=== PATIENT | male | born 1960 | race African-American/Black ===

== ENCOUNTER 2016-11-15 02:30 | Inpatient (IN) | payer MEDICAID ==
[~2016-11-15] VITALS: Ht 188 cm; Wt 68.0 kg
[2016-11-15] VITALS (9 sets, daily range): BP systolic 126–137; BP diastolic 58–76
[~2016-11-15 02:30] MED LIST: Albuterol ud Inhalation HHN ONE; Ipratropium 0.02% Inh Soln 2.5ml UD HHN ONE; NKM
[2016-11-15 03:11] LABS: ABG ALLEN TEST POSITIVE; ABG BASE EXCESS -4.9; ABG PCO2 44.6 mmHg (35.0-45.0)
[2016-11-15 04:02] LABS: MEAN CORPUSCULAR HGB CONC 32.8 G/DL (32.0-36.0); MEAN CORPUSCULAR VOLUME 88 FL (80-99); MEAN PLATELET VOLUME 6.9 FL (6.5-10.1); PLATELET COUNT 94 K/UL (150-450); RED BLOOD COUNT 3.86 M/UL (4.70-6.10); RED CELL DISTRIBUTION WIDTH 15.7 % (11.6-14.8); WHITE BLOOD COUNT 4.3 K/UL (4.8-10.8)
[2016-11-15 04:17] LABS: ALANINE AMINOTRANSFERASE 16 U/L (3-41); ALBUMIN/GLOBULIN RATIO 1.1 (1.0-2.7); ANION GAP 18 (5-15); ASPARTATE AMINO TRANSFERASE 25 U/L (5-40); CALCIUM 8.9 mg/dL (8.6-10.2); CARBON DIOXIDE 20 mEQ/L (20-30); CHLORIDE 100 mEQ/L (98-107); CREATININE 0.8 mg/dL (0.7-1.2); GLOMERULAR FILTRATION RATE > 60 mL/min (>60); HEMOLYSIS 58; POTASSIUM 4.4 mEQ/L (3.4-4.9); SODIUM 138 mEQ/L (135-145); TOTAL PROTEIN 7.1 g/dL (6.6-8.7)
[2016-11-15 04:36] LABS: REFLEX LACTIC ACID YES OR NO YES
[2016-11-15 04:58] LABS: TROPONIN I < 0.30 ng/mL (<=0.30)
[2016-11-15 05:11] LABS: CKMB < 1.5 ng/mL (< 6.7)
--- NOTE | 2016-11-15 06:13 | Emergency Room Report ---
History of Present Illness General Chief Complaint: Dyspnea/Respdistress Source: Patient Present Illness HPI 56-year-old male presents to ED complaining of shortness of breath. States shortness of breath started x1 day. Notes cough. Cough is dry. Denies chest pain. Denies fevers or chills. Patient states he is on home oxygen. Has a tracheostomy because of throat cancer. States he was admitted at another hospital for several months because of his throat cancer and was discharged last week. No other aggravating or relieving factors. Denies any other associated symptoms Allergies: Coded Allergies: No Known Allergies (Unverified , 10/11/12) Patient History Past Medical History: other - throat cancer Past Surgical History: other - trach Pertinent Family History: none Social History: Denies: alcohol use, drug use, smoking Immunizations: UTD Reviewed Nursing Documentation: PMH: Agreed, PSxH: Agreed Nursing Documentation-PMH Hx Cancer: Yes - THROAT CA,WITH TRACHE Hx Gastrointestinal Problems: Yes - pancreatitis,etoh abuse Review of Systems All Other Systems: negative except mentioned in HPI Physical Exam Vital Signs Date Time Temp Pulse Resp B/P Pulse Ox O2 Delivery O2 Flow Rate FiO2 11/15/16 02:07 97.9 84 16 144/73 100 Room Air Sp02 EP Interpretation: reviewed, normal General Appearance: no apparent distress, alert, GCS 15, non-toxic, cachetic, thin Head: normocephalic ENT: hearing grossly normal, normal pharynx, no angioedema, normal voice Neck: full range of motion, supple/symm/no masses, tracheotomy Respiratory: decreased breath sounds Cardiovascular #1: regular rate, rhythm, no edema Gastrointestinal: normal bowel sounds, non tender, soft, non-distended, no guarding, no rebound Rectal: deferred Genitourinary: no CVA tenderness Musculoskeletal: normal inspection Neurologic: alert, oriented x3, responsive, motor strength/tone normal, sensory intact, speech normal Psychiatric: normal inspection Skin: normal inspection Lymphatic: normal inspection Medical Decision Making Diagnostic Impression: Primary Impression: Respiratory distress Additional Impression: Shortness of breath ER Course Hospital Course 56-year-old M presenting to ED with SOB. h/o throat cancer Differential diagnoses include: Pneumonia, CHF exacerbation, pneumothorax, fluid overload Clinical course Patient placed on stretcher. On nurse charge rn with stable vitals. After initial history and physical, I ordered nebulizer treatments. I ordered labs, IV fluids, EKG, chest x-ray, blood cultures, UA. Labs - no leukocytosis noted, hemoglobin/hematocrit stable, electrolytes okay, lactate okay, troponins negative, CXR - hyperinflated lungs. no infiltrates. trach noted EKG - NSR, no acute changes abx given. IvFs given Case discussed with Dr. Gar and he agreed to the patient to his service for further care and support I feel this is a highly complex case requiring extensive working including EKG/ Rhythm strip, Xray/CT/US, Blood/urine lab work, repeat exams while in ED, and administration of strong opiates/narcotics for pain control, admission to hospital or close patient follow up. Diagnosis - respiratory distress, SOB Patient admitted to telemetry in serious condition Labs Test 11/15/16 02:23 11/15/16 03:20 11/15/16 05:30 Arterial Blood pH 7.299 (7.350-7.450) Arterial Blood Partial Pressure CO2 44.6 mmHg (35.0-45.0) Arterial Blood Partial Pressure O2 102.5 mmHg (75.0-100.0) Arterial Blood HCO3 21.4 mmol/L (22.0-26.0) Arterial Blood Oxygen Saturation 96.3 % (92.0-98.0) Arterial Blood Base Excess -4.9 Joe Test Positive White Blood Count 4.3 K/UL (4.8-10.8) Red Blood Count 3.86 M/UL (4.70-6.10) Hemoglobin 11.2 G/DL (14.2-18.0) Hematocrit 34.1 % (42.0-52.0) Mean Corpuscular Volume 88 FL (80-99) Mean Corpuscular Hemoglobin 29.0 PG (27.0-31.0) Mean Corpuscular Hemoglobin Concent 32.8 G/DL (32.0-36.0) Red Cell Distribution Width 15.7 % (11.6-14.8) Platelet Count 94 K/UL (150-450) Mean Platelet Volume 6.9 FL (6.5-10.1) Neutrophils (%) (Auto) % (45.0-75.0) Lymphocytes (%) (Auto) % (20.0-45.0) Monocytes (%) (Auto) % (1.0-10.0) Eosinophils (%) (Auto) % (0.0-3.0) Basophils (%) (Auto) % (0.0-2.0) Sodium Level 138 mEQ/L (135-145) Potassium Level 4.4 mEQ/L (3.4-4.9) Chloride Level 100 mEQ/L (98-107) Carbon Dioxide Level 20 mEQ/L (20-30) Anion Gap 18 (5-15) Blood Urea Nitrogen 12 mg/dL (7-23) Creatinine 0.8 mg/dL (0.7-1.2) Estimat Glomerular Filtration Rate > 60 mL/min (>60) Glucose Level 98 mg/dL (74-106) Lactic Acid Level 2.10 mmol/L (0.66-2.22) Calcium Level 8.9 mg/dL (8.6-10.2) Total Bilirubin 0.4 mg/dL (0.0-1.2) Aspartate Amino Transf (AST/SGOT) 25 U/L (5-40) Alanine Aminotransferase (ALT/SGPT) 16 U/L (3-41) Alkaline Phosphatase 94 U/L (40-129) Total Creatine Kinase 32 U/L (38-174) Creatine Kinase MB < 1.5 ng/mL (< 6.7) Creatine Kinase MB Relative Index 4.6 Troponin I < 0.30 ng/mL (<=0.30) Total Protein 7.1 g/dL (6.6-8.7) Albumin 3.8 g/dL (3.5-5.2) Globulin 3.3 g/dL Albumin/Globulin Ratio 1.1 (1.0-2.7) EKG Diagnostic Results Rate: normal Rhythm: NSR ST Segments: no acute changes ASA given to the pt in ED: No Rhythm Strip Diag. Results EP Interpretation: yes Rhythm: NSR, no PVC's, no ectopy Chest X-Ray Diagnostic Results EP Interpretation: Yes Findings: no consolidation, no effusion, no pneumothorax, no acute cardiopulmonary disease, other - trach Number of Views: 1 Last Vital Signs Date Time Temp Pulse Resp B/P Pulse Ox O2 Delivery O2 Flow Rate FiO2 11/15/16 05:00 98.1 65 16 132/76 100 Room Air Status: improved Disposition: ADMITTED INPATIENT Condition: Serious Referrals: [facility],REFERRING (PCP) ELLIOT SANDERS M.D. November 15, 2016 06:13
[2016-11-15] MEDS ORDERED: DiphenhydrAMINE 50mg/ml Inj IVP PRN (11:00)
[2016-11-15] MEDS ORDERED: Promethazine/Codeine 5ml UD ORAL PRN ×2 (11:00→19:00)
[2016-11-15] MEDS ORDERED: LORazepam Inj 2mg/ml 1ml IV PRN ×2 (11:00→19:00)
[2016-11-15] MEDS ORDERED: Morphine Sulfate 2mg/ml Inj IVP PRN (11:00)
[2016-11-15] MEDS ORDERED: Ketorolac 30mg Inj IV PRN ×2 (11:00→19:00)
[2016-11-15] MEDS ORDERED: DuoNeb 0.5-3(2.5)mg/3ml neb HHN PRN ×2 (11:00→19:00)
[2016-11-15] MEDS ORDERED: Nitroglycerin Subl 0.4mg tab (Bottle Of 25) SL PRN ×2 (11:00→18:15)
[2016-11-15] MEDS: Solu-MEDROL 125mg Inj IV SCH ×3 (11:56→23:44)
--- NOTE | 2016-11-15 12:05 | Diagnostic Imaging Report ---
Indication: SOB Technique: One view of the chest Comparison: none Findings: There is a tracheostomy. Lungs and pleural spaces are clear. Heart size is normal. The bones are unremarkable Impression: No acute process
--- NOTE | 2016-11-15 13:18 | History and Physical ---
History of Present Illness General Date patient seen: November 15, 2016 Reason for Hospitalization: Dyspnea/Respdistress Present Illness HPI 56-year-old male with hx of throat cancer, s/p tracheostomy 6 month ago presented to ED complaining of shortness of breath, dry Cough. He is on home oxygen. He was discharged last week from [facility]. No other aggravating or relieving factors. Denies any other associated symptoms Allergies: Coded Allergies: No Known Allergies (Unverified , 10/11/12) Medication History Scheduled No Known Medications* (NKM - No Known Medications*), 0 ., (Reported) Patient History Healthcare decision maker self Resuscitation status Full Code Advanced Directive on File Past Medical/Surgical History Past Medical/Surgical History: (1) Throat cancer (2) Alcohol abuse Review of Systems All Other Systems: negative except mentioned in HPI Physical Exam General Appearance: cachetic Lines, tubes and drains: peripheral HEENT: normocephalic, atraumatic Neck: non-tender, normal alignment Respiratory/Chest: chest wall non-tender, lungs clear Cardiovascular/Chest: normal peripheral pulses, normal rate Abdomen: normal bowel sounds, non tender Genitourinary/Rectal: normal genital exam Extremities: normal range of motion Last 24 Hour Vital Signs Date Time Temp Pulse Resp B/P Pulse Ox O2 Delivery O2 Flow Rate FiO2 11/15/16 11:37 96.9 63 20 137/63 99 Room Air 11/15/16 11:10 75 18 Room Air 11/15/16 11:10 95 Room Air 21 11/15/16 09:15 97.3 75 17 133/66 100 Room Air 11/15/16 08:23 75 14 124/64 98 Room Air 11/15/16 07:05 70 16 Room Air 11/15/16 07:05 98.0 70 16 127/64 100 Room Air 11/15/16 06:30 98.2 74 15 126/58 100 Room Air 11/15/16 05:00 98.1 65 16 132/76 100 Room Air 11/15/16 04:10 75 18 100 Room Air 11/15/16 03:56 70 18 100 Room Air 11/15/16 03:55 70 18 Room Air 11/15/16 03:30 98.2 66 16 130/70 99 Room Air 11/15/16 02:35 84 16 Room Air 11/15/16 02:35 98.0 64 17 127/67 100 Room Air 11/15/16 02:07 97.9 84 16 144/73 100 Room Air Intake and Output 11/14/16 11/15/16 19:00 07:00 Intake Total 650 ml Output Total 0 ml Balance 650 ml Intake IV Total 650 ml Output Urine Total 0 ml Laboratory Tests Test 11/15/16 02:23 11/15/16 03:20 11/15/16 05:30 Arterial Blood pH 7.299 (7.350-7.450) Arterial Blood Partial Pressure CO2 44.6 mmHg (35.0-45.0) Arterial Blood Partial Pressure O2 102.5 mmHg (75.0-100.0) H Arterial Blood HCO3 21.4 mmol/L (22.0-26.0) L Arterial Blood Oxygen Saturation 96.3 % (92.0-98.0) Arterial Blood Base Excess -4.9 Joe Test Positive White Blood Count 4.3 K/UL (4.8-10.8) L Red Blood Count 3.86 M/UL (4.70-6.10) L Hemoglobin 11.2 G/DL (14.2-18.0) L Hematocrit 34.1 % (42.0-52.0) L Mean Corpuscular Volume 88 FL (80-99) Mean Corpuscular Hemoglobin 29.0 PG (27.0-31.0) Mean Corpuscular Hemoglobin Concent 32.8 G/DL (32.0-36.0) Red Cell Distribution Width 15.7 % (11.6-14.8) H Platelet Count 94 K/UL (150-450) L Mean Platelet Volume 6.9 FL (6.5-10.1) Neutrophils (%) (Auto) % (45.0-75.0) Lymphocytes (%) (Auto) % (20.0-45.0) Monocytes (%) (Auto) % (1.0-10.0) Eosinophils (%) (Auto) % (0.0-3.0) Basophils (%) (Auto) % (0.0-2.0) Sodium Level 138 mEQ/L (135-145) Potassium Level 4.4 mEQ/L (3.4-4.9) Chloride Level 100 mEQ/L (98-107) Carbon Dioxide Level 20 mEQ/L (20-30) Anion Gap 18 (5-15) H Blood Urea Nitrogen 12 mg/dL (7-23) Creatinine 0.8 mg/dL (0.7-1.2) Estimat Glomerular Filtration Rate > 60 mL/min (>60) Glucose Level 98 mg/dL (74-106) Lactic Acid Level 2.10 mmol/L (0.66-2.22) 2.00 mmol/L (0.66-2.22) Calcium Level 8.9 mg/dL (8.6-10.2) Total Bilirubin 0.4 mg/dL (0.0-1.2) Aspartate Amino Transf (AST/SGOT) 25 U/L (5-40) Alanine Aminotransferase (ALT/SGPT) 16 U/L (3-41) Alkaline Phosphatase 94 U/L (40-129) Total Creatine Kinase 32 U/L (38-174) L Creatine Kinase MB < 1.5 ng/mL (< 6.7) Creatine Kinase MB Relative Index 4.6 Troponin I < 0.30 ng/mL (<=0.30) Pro-B-Type Natriuretic Peptide 45 pg/mL (0-125) Total Protein 7.1 g/dL (6.6-8.7) Albumin 3.8 g/dL (3.5-5.2) Globulin 3.3 g/dL Albumin/Globulin Ratio 1.1 (1.0-2.7) Height (Feet): 6 Height (Inches): 2.00 Weight (Pounds): 150 Medications Current Medications Medications (Trade) Dose Ordered Sig/Kesha Route PRN Reason Start Time Stop Time Status Last Admin Dose Admin Albuterol/ Ipratropium (DuoNeb 0.5-3(2.5)mg/3ml) 3 ml Q4H PRN HHN dyspnea 11/15/16 11:00 11/20/16 10:59 Dextrose (Dextrose 50%) STAT PRN IV Hypoglycemia 11/15/16 10:30 12/15/16 10:29 Diphenhydramine HCl 25 mg 25 mg Q6H PRN IVP Itching 11/15/16 11:00 12/15/16 10:59 11/15/16 11:20 Heparin Sodium (Porcine) (Heparin 5000 units/ml) 5,000 units EVERY 12 HOURS SUBQ 11/15/16 21:00 12/15/16 20:59 UNV Ketorolac Tromethamine (Toradol 30mg) 30 mg Q8H PRN IV moderate pain 4-6 11/15/16 11:00 11/20/16 10:59 11/15/16 11:20 Lorazepam (Ativan 2mg/ml 1ml) 0.5 mg Q4H PRN IV For Anxiety 11/15/16 11:00 11/22/16 10:59 Methylprednisolone Sodium Succinate (Solu-MEDROL) 60 mg EVERY 6 HOURS IV 11/15/16 12:00 12/15/16 11:59 11/15/16 11:56 Morphine Sulfate (Morphine Sulfate) 2 mg Q4H PRN IVP severe pain 7-10 11/15/16 11:00 11/22/16 10:59 Nitroglycerin (Ntg) 0.4 mg Q5M X 3 DOSES PRN SL Prn Chest Pain 11/15/16 11:00 12/15/16 10:59 Ondansetron HCl (Zofran) 4 mg Q6H PRN IVP Nausea & Vomiting 11/15/16 11:00 12/15/16 10:59 Piperacillin Sod/ Tazobactam Sod/ Dextrose (Zosyn/D5W) 110 ml @ 27.5 mls/hr EVERY 8 HOURS IVPB 11/15/16 14:00 11/20/16 13:59 Promethazine HCl/ Codeine (Phenergan with Codeine) 5 ml Q6H PRN ORAL cough 11/15/16 11:00 12/15/16 10:59 Temazepam (Restoril) 15 mg HSPRN PRN ORAL Insomnia 11/15/16 21:00 11/22/16 20:59 Theophylline (Andrew-Dur) 100 mg EVERY 12 HOURS ORAL 11/15/16 21:00 12/15/16 20:59 Assessment/Plan Problem List: (1) Acute bronchitis ICD Codes: J20.9 - Acute bronchitis, unspecified SNOMED: 78611863 (2) Respiratory distress ICD Codes: R06.00 - Dyspnea, unspecified SNOMED: 592154154 (3) Throat cancer 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
[2016-11-15] MEDS ORDERED: Piperacillin/Tazobactam 2.25 GM in D5W 55 ML IV SCH (14:00)
[2016-11-15] MEDS ORDERED: Zoysn 3.37gm in D5W 110ml IVPB SCH (14:00)
[2016-11-15] MEDS: DiphenhydrAMINE 50mg/ml Inj IVP PRN (18:27)
[2016-11-15] MEDS: Morphine Sulfate 2mg/ml Inj IVP PRN (19:48)
[2016-11-15] MEDS ORDERED: Heparin 5000 units/ml inj SUBQ SCH (21:00)
[2016-11-15] MEDS ORDERED: Theophylline ER 100mg ORAL SCH (21:00)
[2016-11-15] MEDS: Theophylline ER 100mg ORAL SCH (21:31)
[2016-11-15] MEDS: Piperacillin/Tazobactam 3.375 GM in D5W 110 ML IVPB SCH (21:31)
[2016-11-16] VITALS: BP 127/59
[2016-11-16 02:41] LABS: APPEARANCE,URINE CLEAR; KETONES,URINE NEGATIVE (NEGATIVE); LEUKOCYTE ESTERASE ,URINE NEGATIVE (NEGATIVE); NITRITE,URINE NEGATIVE (NEGATIVE); PH,URINE 5 (4.5-8.0); PROTEIN,URINE NEGATIVE (NEGATIVE); UROBILINOGEN,URINE NORMAL MG/DL (0.0-1.0)
[2016-11-16 04:00] VITALS: BP 126/68
[2016-11-16] MEDS: DiphenhydrAMINE 50mg/ml Inj IVP PRN ×3 (04:35→18:46)
[2016-11-16] MEDS: Solu-MEDROL 125mg Inj IV SCH ×4 (06:07→23:40)
[2016-11-16] MEDS: Piperacillin/Tazobactam 3.375 GM in D5W 110 ML IVPB SCH ×3 (06:08→21:57)
[2016-11-16] MEDS: Morphine Sulfate 2mg/ml Inj IVP PRN ×3 (06:08→18:46)
[2016-11-16 08:15] VITALS: BP 131/64
[2016-11-16] MEDS ORDERED: Heparin 5000 units/ml inj SUBQ SCH (09:00)
--- NOTE | 2016-11-16 10:55 | Cardiology Report ---
APPROVED REPORT EKG Measurement Heart [id number] Normal sinus rhythm Normal ECG
[2016-11-16] MEDS: Theophylline ER 100mg ORAL SCH ×2 (11:01→21:05)
[2016-11-16 12:15] VITALS: BP 134/67
[2016-11-16 16:03] VITALS: BP 107/50
--- NOTE | 2016-11-16 18:30 | Pulmonology Progress Note ---
Assessment/Plan Problems: (1) Acute bronchitis (2) Respiratory distress (3) Throat cancer Assessment/Plan all noted check cultures continue abx oncology evaluation Subjective ROS Limited/Unobtainable: No Constitutional: Reports: no symptoms HEENT: Repors: no symptoms Allergies: Coded Allergies: No Known Allergies (Unverified , 10/11/12) Objective Last 24 Hour Vital Signs Date Time Temp Pulse Resp B/P Pulse Ox O2 Delivery O2 Flow Rate FiO2 11/16/16 16:03 97.6 57 22 107/50 97 Room Air 11/16/16 13:28 Trach Collar 6.0 28 11/16/16 13:27 98 Trach Collar 6.0 28 11/16/16 12:15 97.6 66 21 134/67 97 Nasal Cannula 11/16/16 12:00 97.6 11/16/16 08:15 97.7 60 21 131/64 98 Room Air 11/16/16 07:26 98 Trach Collar 6.0 28 11/16/16 07:03 Trach Collar 6.0 28 11/16/16 07:03 98 Trach Collar 6.0 28 11/16/16 04:00 97.3 64 18 126/68 100 11/16/16 01:25 Trach Collar 6.0 28 11/16/16 01:24 95 Trach Collar 6.0 28 11/16/16 00:00 97.9 69 18 127/59 100 11/15/16 20:00 98.1 73 20 133/60 100 Room Air 11/15/16 19:58 96 Trach Collar 6.0 28 11/15/16 19:57 Trach Collar 6.0 28 Intake and Output 11/15/16 11/16/16 19:00 07:00 Intake Total 527.5 ml 110.0 ml Output Total 950 ml 1600 ml Balance -422.5 ml -1490.0 ml Intake Oral 500 ml IV Total 27.5 ml 110.0 ml Output Urine Total 950 ml 1600 ml Objective General Appearance: WD/WN HEENT: normocephalic, atraumatic, trach in place Respiratory/Chest: chest wall non-tender, bilateral rales Cardiovascular: normal peripheral pulses, normal rate Abdomen: normal bowel sounds, no organomegaly Genitourinary: normal external genitalia 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 Microbiology Date/Time Source Procedure Growth Status 11/15/16 03:20 Blood Blood Culture - Preliminary NO GROWTH AFTER 24 HOURS Resulted 11/15/16 03:00 Blood Blood Culture - Preliminary NO GROWTH AFTER 24 HOURS Resulted Laboratory Tests 11/16/16 01:55: Urine Color Yellow, Urine Appearance Clear, Urine pH 5, Urine Specific [place] 1.015, Urine Protein Negative, Urine Glucose (UA) 2+H, Urine Ketones Negative, Urine Occult Blood Negative, Urine Nitrite Negative, Urine Bilirubin Negative, Urine Urobilinogen Normal, Urine Leukocyte Esterase Negative Current Medications Medications (Trade) Dose Ordered Sig/Kesha Route PRN Reason Start Time Stop Time Status Last Admin Dose Admin Albuterol/ Ipratropium (DuoNeb 0.5-3(2.5)mg/3ml) 3 ml Q4H PRN HHN dyspnea 11/15/16 19:00 11/20/16 18:59 Dextrose (Dextrose 50%) STAT PRN IV Hypoglycemia 11/15/16 17:00 12/15/16 16:59 Diphenhydramine HCl (Benadryl) 25 mg Q6H PRN IVP Itching 11/15/16 19:00 12/15/16 18:59 11/16/16 11:29 Ketorolac Tromethamine (Toradol 30mg) 30 mg Q8H PRN IV moderate pain 4-6 11/15/16 19:00 11/20/16 18:59 Lorazepam (Ativan 2mg/ml 1ml) 0.5 mg Q4H PRN IV For Anxiety 11/15/16 19:00 11/22/16 18:59 Methylprednisolone Sodium Succinate (Solu-MEDROL) 60 mg EVERY 6 HOURS IV 11/16/16 00:00 12/16/16 00:00 11/16/16 17:55 Morphine Sulfate (Morphine Sulfate) 2 mg Q4H PRN IVP severe pain 7-10 11/15/16 19:00 11/22/16 18:59 11/16/16 11:30 Nitroglycerin (Ntg) 0.4 mg Q5M X 3 DOSES PRN SL Prn Chest Pain 11/15/16 18:15 12/15/16 18:14 Ondansetron HCl (Zofran) 4 mg Q6H PRN IVP Nausea & Vomiting 11/15/16 19:00 12/15/16 18:59 Piperacillin Sod/ Tazobactam Sod/ Dextrose (Zosyn/D5W) 110 ml @ 27.5 mls/hr EVERY 8 HOURS IVPB 11/15/16 22:00 11/22/16 21:59 11/16/16 15:02 Promethazine HCl/ Codeine (Phenergan with Codeine) 5 ml Q6H PRN ORAL cough 11/15/16 19:00 12/15/16 18:59 Temazepam (Restoril) 15 mg HSPRN PRN ORAL Insomnia 11/15/16 21:00 11/22/16 20:59 11/15/16 21:31 Theophylline (Andrew-Dur) 100 mg EVERY 12 HOURS ORAL 11/15/16 21:00 12/15/16 20:59 11/16/16 11:01 JOSE C KHAN November 16, 2016 18:30
[2016-11-16 20:00] VITALS: BP 123/63
[2016-11-17] VITALS: BP 126/61
[2016-11-17] MEDS: Morphine Sulfate 2mg/ml Inj IVP PRN ×2 (01:43→11:36)
[2016-11-17] MEDS: DiphenhydrAMINE 50mg/ml Inj IVP PRN ×2 (03:33→11:36)
[2016-11-17 03:58] VITALS: BP 120/62
[2016-11-17] MEDS: Piperacillin/Tazobactam 3.375 GM in D5W 110 ML IVPB SCH ×2 (05:31→13:37)
[2016-11-17] MEDS: Solu-MEDROL 125mg Inj IV SCH ×2 (05:31→11:36)
[2016-11-17 08:00] VITALS: BP 112/62
[2016-11-17 08:02] LABS: THYROID STIMULATING HORMONE 0.369 uIU/mL (0.300-4.500)
[2016-11-17 08:27] LABS: INR 1.1 (0.9-1.1); PROTHROMBIN TIME 11.3 SEC (9.30-11.50)
[2016-11-17 08:28] LABS: MEAN CORPUSCULAR HEMOGLOBIN 28.4 PG (27.0-31.0); MEAN CORPUSCULAR VOLUME 89 FL (80-99); MEAN PLATELET VOLUME 6.7 FL (6.5-10.1); PLATELET COUNT 97 K/UL (150-450); RED BLOOD COUNT 3.79 M/UL (4.70-6.10); WHITE BLOOD COUNT 8.1 K/UL (4.8-10.8)
[2016-11-17 08:39] LABS: REFLEX LACTIC ACID YES OR NO YES
[2016-11-17] MEDS: Theophylline ER 100mg ORAL SCH (08:52)
[2016-11-17 10:37] LABS: ANISOCYTOSIS 1+; BAND NEUTROPHILS % (MANUAL) 0 % (0-8); BASOPHILS % (MANUAL) 0 % (0-2); EOSINOPHILS % (MANUAL) 0 % (0-3); LYMPHOCYTES % (MANUAL) 8 % (20-45); NEUTROPHILS % (MANUAL) 90 % (45-75); PLATELET ESTIMATE DECREASED; PLATELET MORPHOLOGY NORMAL; TOTAL CELLS COUNTED 100
[2016-11-17 10:45] LABS: PATH BLOOD SMEAR/OMC SENT TO PATHOLOGIST
--- NOTE | 2016-11-17 11:36 | Diagnostic Imaging Report ---
APPROVED REPORT CPT Code: 92420 Present Symptoms Shortness of breath BILATERAL: Imaging reveals a patent deep venous system bilaterally. There is no evidence of thrombus within the femoral, popliteal or tibial segments. The greater saphenous veins are also within normal limits. Doppler indicates normal spontaneous flow within these segments.
[2016-11-17 12:00] VITALS: BP 126/62
--- NOTE | 2016-11-17 14:44 | Pulmonology Progress Note ---
Assessment/Plan Problems: (1) Acute bronchitis (2) Respiratory distress (3) Throat cancer Assessment/Plan all noted check cultures continue abx oncology evaluation pt wants to go home with outpatinet f/u with his oncologist Subjective Constitutional: Reports: no symptoms HEENT: Repors: no symptoms Respiratory: Reports: no symptoms Cardiovascular: Reports: no symptoms Allergies: Coded Allergies: No Known Allergies (Unverified , 10/11/12) Objective Last 24 Hour Vital Signs Date Time Temp Pulse Resp B/P Pulse Ox O2 Delivery O2 Flow Rate FiO2 11/17/16 13:21 99 Trach Collar 6.0 28 11/17/16 13:20 Trach Collar 6.0 28 11/17/16 12:06 97.2 11/17/16 12:00 97.2 81 20 126/62 100 Trach Collar 6.0 11/17/16 08:00 97.7 81 20 112/62 100 Trach Collar 6.0 11/17/16 07:49 98 Trach Collar 6.0 28 11/17/16 07:48 Trach Collar 6.0 28 11/17/16 03:58 97.0 57 19 120/62 100 Room Air 11/17/16 01:37 99 Trach Collar 6.0 28 11/17/16 01:37 Trach Collar 6.0 28 11/17/16 00:00 97.6 72 17 126/61 100 11/16/16 20:00 97.2 71 18 123/63 100 Room Air 11/16/16 19:30 Trach Collar 6.0 28 11/16/16 19:30 98 Trach Collar 6.0 28 11/16/16 16:03 97.6 57 22 107/50 97 Room Air Intake and Output 11/16/16 11/17/16 19:00 07:00 Intake Total 792.5 ml 165.0 ml Output Total 1400 ml Balance -607.5 ml 165.0 ml Intake Oral 600 ml IV Total 192.5 ml 165.0 ml Output Urine Total 1400 ml # Voids 5 3 Objective General Appearance: WD/WN HEENT: normocephalic, atraumatic, trach in place Respiratory/Chest: chest wall non-tender, bilateral rales Cardiovascular: normal peripheral pulses, normal rate Abdomen: normal bowel sounds, no organomegaly Genitourinary: normal external genitalia 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 Complete Laboratory Tests 11/17/16 05:30: White Blood Count 8.1, Red Blood Count 3.79L, Hemoglobin 10.8L, Hematocrit 33.6L , Mean Corpuscular Volume 89, Mean Corpuscular Hemoglobin 28.4, Mean Corpuscular Hemoglobin Concent 32.0, Red Cell Distribution Width 16.0H, Platelet Count 97L, Mean Platelet Volume 6.7, Neutrophils (%) (Auto) , Lymphocytes (%) (Auto) , Monocytes (%) (Auto) , Eosinophils (%) (Auto) , Basophils (%) (Auto) , Differential Total Cells Counted 100, Neutrophils % ( Manual) 90H, Lymphocytes % (Manual) 8L, Monocytes % (Manual) 2, Eosinophils % ( Manual) 0, Basophils % (Manual) 0, Band Neutrophils 0, Platelet Estimate DecreasedL, Platelet Morphology Normal, Hypochromasia , Anisocytosis 1+, Reticulocyte Count 1.0, Haptoglobin 162, Prothrombin Time 11.3, Prothromb Time International Ratio 1.1, Fibrinogen 279, Lactic Acid Level 2.30H, Iron Level 65 , Total Iron Binding Capacity 215L, Percent Iron Saturation 30, Unsaturated Iron Binding 150, Ferritin 313H, Carcinoembryonic Antigen 3.3H, Vitamin B12 Level 745, Folate [Pending], Thyroid Stimulating Hormone (TSH) 0.369, Hepatitis A IgM Antibody [Pending], Hepatitis B Surface Antigen [Pending], Hepatitis B Core IgM Antibody [Pending], Hepatitis C Antibody [Pending], HIV (1&2) Antibody Rapid Negative Current Medications Medications (Trade) Dose Ordered Sig/Kesha Route PRN Reason Start Time Stop Time Status Last Admin Dose Admin Albuterol/ Ipratropium (DuoNeb 0.5-3(2.5)mg/3ml) 3 ml Q4H PRN HHN dyspnea 11/15/16 19:00 11/20/16 18:59 Dextrose (Dextrose 50%) STAT PRN IV Hypoglycemia 11/15/16 17:00 12/15/16 16:59 Diphenhydramine HCl (Benadryl) 25 mg Q6H PRN IVP Itching 11/15/16 19:00 12/15/16 18:59 11/17/16 11:36 Ketorolac Tromethamine (Toradol 30mg) 30 mg Q8H PRN IV moderate pain 4-6 11/15/16 19:00 11/20/16 18:59 Lorazepam (Ativan 2mg/ml 1ml) 0.5 mg Q4H PRN IV For Anxiety 11/15/16 19:00 11/22/16 18:59 Methylprednisolone Sodium Succinate (Solu-MEDROL) 60 mg EVERY 6 HOURS IV 11/16/16 00:00 12/16/16 00:00 11/17/16 11:36 Morphine Sulfate (Morphine Sulfate) 2 mg Q4H PRN IVP severe pain 7-10 11/15/16 19:00 11/22/16 18:59 11/17/16 11:36 Nitroglycerin (Ntg) 0.4 mg Q5M X 3 DOSES PRN SL Prn Chest Pain 11/15/16 18:15 12/15/16 18:14 Ondansetron HCl (Zofran) 4 mg Q6H PRN IVP Nausea & Vomiting 11/15/16 19:00 12/15/16 18:59 Piperacillin Sod/ Tazobactam Sod/ Dextrose (Zosyn/D5W) 110 ml @ 27.5 mls/hr EVERY 8 HOURS IVPB 11/15/16 22:00 11/22/16 21:59 11/17/16 13:37 Promethazine HCl/ Codeine (Phenergan with Codeine) 5 ml Q6H PRN ORAL cough 11/15/16 19:00 12/15/16 18:59 Temazepam (Restoril) 15 mg HSPRN PRN ORAL Insomnia 11/15/16 21:00 11/22/16 20:59 11/16/16 21:05 Theophylline (Andrew-Dur) 100 mg EVERY 12 HOURS ORAL 11/15/16 21:00 6/22/17 20:59 11/17/16 08:52 JOSE C KHAN November 17, 2016 14:44
[2016-11-17] MEDS ORDERED: BACTRIM DOUBLE S1 E1 ORAL (14:47)
[2016-11-17 16:00] VITALS: BP 132/73
[2016-11-17] MEDS ORDERED: NS 550ML IV ONE (16:38)
--- NOTE | 2016-11-17 17:10 | Consultation ---
Consult Note Consult Note Oncology Evaluation DOS: 11/17/16 REQ MD: Rin RFC: Throat CA ID 56-year-old male with hx of throat cancer, s/p tracheostomy 6 month ago presented to ED complaining of shortness of breath, dry Cough. He is on home oxygen. He was discharged last week from [facility]. No other aggravating or relieving factors. Denies any other associated symptoms. Sees an oncologist on the outside and will f/u with them once discharged Allergies: no Known Allergies (Unverified , 10/11/12) Home meds: No Known Medications* (NKM - No Known Medications*), 0 ., (Reported) Past Medical hx: alcohol abuse and throat ca ROS: Constitutional: No fever, no chills, no night sweats, no fatigue Skin: No rashes, lumps, itchiness, dryness HEENT: No PAGE, ear ache, visual changes, double vision, nosebleeds, sore throat, lumps, swollen glands Breasts: No lumps, pain, discharge Pulmonary: No cough, sputum, shortness of breath, coughing up blood, hemoptysis Cardiovascular: No chest pain, tightness, palpitations, syncope, claudication, orthopnea, PND GI: No nausea, vomiting, diarrhea, melena, hematochezia, change in appetite, abdominal pain : No dysuria, frequency, urgency, urinary incontinence, foamy urine Musculoskeletal: No joint swelling or muscle pain, trauma, back pain Neurologic: No dizziness, fainting, seizures, changes in smell or taste Psychiatric: No nervousness, stress, or depression, anxiety, hallucinations Endocrine: No weight change, heat or cold intolerance, tremor, insomnia PE: General Appearance: A+O x3, NAD Skin: no rashes, itching HEENT: normocephalic, atraumatic Respiratory/Chest: chest wall non-tender, lungs clear Cardiovascular/Chest: normal peripheral pulses, normal rate Abdomen: normal bowel sounds, non tender Last 24 Hour Vital Signs Last 24 Hour Vital Signs Date Time Temp Pulse Resp B/P Pulse Ox O2 Delivery O2 Flow Rate FiO2 11/17/16 16:00 97.2 80 20 132/73 100 Trach Collar 6.0 11/17/16 13:21 99 Trach Collar 6.0 28 11/17/16 13:20 Trach Collar 6.0 28 11/17/16 12:06 97.2 11/17/16 12:00 97.2 81 20 126/62 100 Trach Collar 6.0 11/17/16 08:00 97.7 81 20 112/62 100 Trach Collar 6.0 11/17/16 07:49 98 Trach Collar 6.0 28 11/17/16 07:48 Trach Collar 6.0 28 11/17/16 03:58 97.0 57 19 120/62 100 Room Air 11/17/16 01:37 99 Trach Collar 6.0 28 11/17/16 01:37 Trach Collar 6.0 28 11/17/16 00:00 97.6 72 17 126/61 100 11/16/16 20:00 97.2 71 18 123/63 100 Room Air 11/16/16 19:30 Trach Collar 6.0 28 11/16/16 19:30 98 Trach Collar 6.0 28 Laboratory Tests Test 11/17/16 05:30 White Blood Count 8.1 K/UL (4.8-10.8) Red Blood Count 3.79 M/UL (4.70-6.10) L Hemoglobin 10.8 G/DL (14.2-18.0) L Hematocrit 33.6 % (42.0-52.0) L Mean Corpuscular Volume 89 FL (80-99) Mean Corpuscular Hemoglobin 28.4 PG (27.0-31.0) Mean Corpuscular Hemoglobin Concent 32.0 G/DL (32.0-36.0) Red Cell Distribution Width 16.0 % (11.6-14.8) H Platelet Count 97 K/UL (150-450) L Mean Platelet Volume 6.7 FL (6.5-10.1) Neutrophils (%) (Auto) % (45.0-75.0) Lymphocytes (%) (Auto) % (20.0-45.0) Monocytes (%) (Auto) % (1.0-10.0) Eosinophils (%) (Auto) % (0.0-3.0) Basophils (%) (Auto) % (0.0-2.0) Differential Total Cells Counted 100 Neutrophils % (Manual) 90 % (45-75) H Lymphocytes % (Manual) 8 % (20-45) L Monocytes % (Manual) 2 % (1-10) Eosinophils % (Manual) 0 % (0-3) Basophils % (Manual) 0 % (0-2) Band Neutrophils 0 % (0-8) Platelet Estimate Decreased L Platelet Morphology Normal Hypochromasia Anisocytosis 1+ Reticulocyte Count 1.0 % (0.0-2.0) Haptoglobin 162 mg/dL (30-200) Prothrombin Time 11.3 SEC (9.30-11.50) Prothromb Time International Ratio 1.1 (0.9-1.1) Fibrinogen 279 mg/dL (200-400) Lactic Acid Level 2.30 mmol/L (0.66-2.22) H Iron Level 65 ug/dL (59-158) Total Iron Binding Capacity 215 ug/dL (250-400) L Percent Iron Saturation 30 % (15-50) Unsaturated Iron Binding 150 ug/dL (112-346) Ferritin 313 ng/mL (10-230) H Carcinoembryonic Antigen 3.3 ng/mL H Vitamin B12 Level 745 pg/mL (211-946) Folate Pending Thyroid Stimulating Hormone (TSH) 0.369 uIU/mL (0.300-4.500) Hepatitis A IgM Antibody Pending Hepatitis B Surface Antigen Pending Hepatitis B Core IgM Antibody Pending Hepatitis C Antibody Pending HIV (1&2) Antibody Rapid Negative (NEGATIVE) Assessment/Recs: # Throat cancer - is s/p chemotherapy and trach placemnt, will see outpatient f/ u # Anemia of chronic disease # Thrombocytopenia potentially infection/meds # Leukopenia potentially 2/2 infection, closely monitor # Acute bronchitis - placed on iv abx # Respiratory distress Omer Slade November 17, 2016 17:10
--- NOTE | 2016-11-18 15:53 | Discharge Summary ---
Discharge Summary Hospital Course Date of Admission November 15, 2016 at 05:16 Date of Discharge November 17, 2016 at 16:39 Admitting Diagnosis SHORTNESS OF BREATH HPI Denny Toth is a 56 year old male who was admitted on November 15, 2016 at 05:16 for Shortness Of Breath Hospital Course [id number] Discharge Discharge Disposition Patient was discharged to Home with Home Health(06) Discharge Diagnoses: Michelle Vigil NP November 18, 2016 15:53
--- NOTE | 2016-11-19 09:02 | Discharge Summary 2 SIG ---
DATE OF ADMISSION: 11/15/2016 DATE OF DISCHARGE: 11/17/2016 WIRE WHEELER: Omer Slade M.D. BRIEF HOSPITAL COURSE: The patient is a 56-year-old male with history of throat CA status post tracheostomy six months ago, presented to ED complaining of shortness of breath with dry cough. He is on oxygen at home and was admitted to another hospital for several months because of his throat cancer and was discharged a week prior. On evaluation at ED, labs showed no leukocytosis. Electrolytes were normal. Chest x-ray showed hyperinflated lungs. The patient was admitted for further evaluation and was started on IV antibiotics and IV steroids. Dr. Slade was consulted. The patient is status post chemotherapy and trach placement for throat CA and needs to follow up as outpatient. Anemia was secondary to chronic disease. Sputum culture showed growth of MRSA Staph. Blood culture did not isolate any growth. He was then discharged to complete Bactrim 400/80 mg for five days. FINAL DIAGNOSES: 1. Acute bronchitis. 2. Throat carcinoma status post tracheostomy. 3. Anemia of chronic disease. 4. Thrombocytopenia. 5. Leukopenia. Nona Gar M.D. I have been assigned to dictate discharge summary on this account and I was not involved in the patient's management. Michelle Vigil N.P. DR: Mich JOB#: [id number] CC:
== END 2016-11-17 16:39 | disposition home health service (06) | DRG 144 ==
LOC: EDBD 02:30 → EMR 02:39 → 2E 05:16 → EDBEDREQ 08:28 → 4E 18:00
DX: J20.9 Acute bronchitis, unspecified (principal); Z99.81 Dependence on supplemental oxygen; D69.6 Thrombocytopenia, unspecified; C14.0 Malignant neoplasm of pharynx, unspecified; D63.8 Anemia in other chronic diseases classified elsewhere; D72.819 Decreased white blood cell count, unspecified
CPT/HCPCS: 36415; 36600; 71010; 74230; 80053; 81003; 82378; 82550; 82553; 82607; 82728; 82746; 82803; 83010; 83540; 83550; 83605; 83880; 84443; 84484; 85007; 85025; 85044; 85060; 85384; 85610; 86703; 86705; 86709; 86803; 87040; 87070; 87081; 87181; 87205; 87340; 93005; 93970; 94640; 94664; 94760

== ENCOUNTER 2016-12-01 08:20 | Emergency (ER) | payer MEDICAID ==
[~2016-12-01] VITALS: Ht 188 cm; Wt 70.3 kg
[~2016-12-01 08:20] MED LIST changes: -Albuterol ud Inhalation HHN ONE; +BACTRIM DOUBLE S1 E1 ORAL; -Ipratropium 0.02% Inh Soln 2.5ml UD HHN ONE
[2016-12-01] MEDS ORDERED: Hydrogen Peroxide 473ml Bottle TOPIC ONE (08:47)
[2016-12-01 08:50] VITALS: BP 157/87
--- NOTE | 2016-12-01 09:05 | Emergency Room Report ---
History of Present Illness General Chief Complaint: Upper Respiratory Illness Source: Patient, EMS Present Illness HPI 56YOM BIBEMS with request for trach replacement. Patient removed inner cannula last night. On Home O2. 2-3 days of URI symptoms including cough, sore through , congestion. Denies fever/chills. Recent admission in October. Blood Cx negative. CXR negative for PNA. Sputum Cx from November 15 grew MRSA Susceptible to Bactrim Allergies: Coded Allergies: No Known Allergies (Unverified , 10/11/12) Patient History Past Medical History: other - Throat cancer Past Surgical History: other - Trach Pertinent Family History: none Social History: Reports: smoking Immunizations: UTD Reviewed Nursing Documentation: PMH: Agreed, PSxH: Agreed Nursing Documentation-PMH Past Medical History: No Stated History Hx COPD: Yes - Tracheostomy Tube Hx Cancer: Yes - Throat Review of Systems All Other Systems: negative except mentioned in HPI Physical Exam Vital Signs Date Time Temp Pulse Resp B/P Pulse Ox O2 Delivery O2 Flow Rate FiO2 12/01/16 08:15 97.7 100 15 157/87 98 Room Air Sp02 EP Interpretation: reviewed, normal General Appearance: normal inspection, well appearing, no apparent distress, alert Head: atraumatic ENT: normal ENT inspection, hearing grossly normal, normal voice Neck: normal inspection, full range of motion, supple, no bony tend, other - Inner canula was removed by patient. Trach itself is covered in grime, mucous. 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, motor strength/tone normal, speech normal Psychiatric: normal inspection, judgement/insight normal, mood/affect normal Skin: normal inspection, normal color, no rash Medical Decision Making Diagnostic Impression: Primary Impression: Tracheostomy malfunction Additional Impression: Upper respiratory infection Qualified Codes: J06.9 - Acute upper respiratory infection, unspecified; B97.89 - Other viral agents as the cause of diseases classified elsewhere ER Course CXR no lobar PNA Tracheostomy inner cannula was humidified and then cleaned and replaced DC with Bactrim to cover possible URI infection as per October sputum Cx DC home Chest X-Ray Diagnostic Results EP Interpretation: Yes Findings: no consolidation, no effusion, no pneumothorax, no acute cardiopulmonary disease Number of Views: 1 Last Vital Signs Date Time Temp Pulse Resp B/P Pulse Ox O2 Delivery O2 Flow Rate FiO2 12/01/16 08:15 97.7 100 15 157/87 98 Room Air Status: improved Disposition: HOME, SELF-CARE Scripts Trimethoprim/Sulfamethoxazole 160/800* (BACTRIM DS TABLET*) 1 Each Tablet 1 TAB ORAL Q12H for 7 Days, #14 TAB 0 Refills Prov: NARCISA FARIAS M.D. 12/01/16 NARCISA FARIAS M.D. Dec 01, 2016 09:05
[2016-12-01 09:16] VITALS: BP 108/69
[2016-12-01 10:11] VITALS: BP 147/63
[2016-12-01] MEDS ORDERED: BACTRIM DS TAB1 EAC1 ORAL (10:11)
[2016-12-01] MEDS ORDERED: Morphine Sulfate 2mg/ml Inj IM ONE (10:15)
[2016-12-01 11:34] VITALS: BP 141/67
--- NOTE | 2016-12-01 15:20 | Diagnostic Imaging Report ---
Indication: SOB Technique: One view of the chest Comparison: 11/15/2016 Findings: The heart is enlarged. There is a tracheostomy. Lungs and pleural spaces are clear. Normal heart size. No significant change Impression: No acute process
== END 2016-12-01 11:49 | disposition home or self-care (01) ==
LOC: EDBD 08:20 → EMR 08:56
DX: J95.03 Malfunction of tracheostomy stoma (principal); J06.9 Acute upper respiratory infection, unspecified; Z85.89 Personal history of malignant neoplasm of other organs and systems; J44.9 Chronic obstructive pulmonary disease, unspecified; F17.200 Nicotine dependence, unspecified, uncomplicated
CPT/HCPCS: 71010; 94664; 96372; 99284; J2270

== ENCOUNTER 2017-07-05 12:52 | Emergency (ER) | payer MEDICAID ==
[~2017-07-05] VITALS: Ht 182.9 cm; Wt 54.4 kg
[~2017-07-05 12:52] MED LIST changes: +BACTRIM DS TAB1 EAC1 ORAL
[2017-07-05] MEDS ORDERED: Albuterol/Ipratropium 3ml neb HHN ONE (13:30)
--- NOTE | 2017-07-05 14:45 | Diagnostic Imaging Report ---
Indication: Dyspnea Technique: XRAY Chest 1v Comparison: 12/01/2016 Findings: Heart size and mediastinal contours are stable. Tracheostomy tube again noted. There is no focal airspace consolidation, pleural effusion or pneumothorax. No acute osseous abnormality is appreciated. Impression: No radiographic evidence of acute cardiopulmonary disease. No significant interval change in appearance of the heart and lungs compared to the prior exam.
[2017-07-05 14:51] LABS: HEMATOCRIT 29.1 % (42.0-52.0); MEAN CORPUSCULAR VOLUME 93 FL (80-99); PLATELET COUNT 145 K/UL (150-450); RED BLOOD COUNT 3.13 M/UL (4.70-6.10); RED CELL DISTRIBUTION WIDTH 14.7 % (11.6-14.8); WHITE BLOOD COUNT 8.7 K/UL (4.8-10.8)
--- NOTE | 2017-07-05 14:58 | Emergency Room Report ---
History of Present Illness General Chief Complaint: General Complaint Source: Patient, EMS Present Illness HPI Patient is a 56-year-old male who presented after increased difficulty breathing and tracheal obstruction. The patient stated that he had dislodges trach yesterday. Patient had been having increased bleeding from the tracheostomy. He was noted to have a #6 Shiley trach. This had been out of it stoma for one day. Patient had noted increased difficulty breathing. Patient previously had chemotherapy. The patient noted have increased trach secretions. Allergies: Coded Allergies: No Known Allergies (Unverified , 10/11/12) Patient History Past Medical History: see triage record, other - throat ca Past Surgical History: other - tracheostomy Reviewed Nursing Documentation: PMH: Agreed, PSxH: Agreed Nursing Documentation-PMH Hx COPD: Yes - Tracheostomy Tube Hx Cancer: Yes Hx Gastrointestinal Problems: Yes - pancreatitis,etoh abuse Review of Systems All Other Systems: limited - by acuity Physical Exam Vital Signs Date Time Temp Pulse Resp B/P (MAP) Pulse Ox O2 Delivery O2 Flow Rate FiO2 07/05/17 12:58 97.9 110 18 160/80 98 Simple Mask General Appearance: alert, GCS 15, moderate distress, thin, Chronically Ill ENT: uvula midline Neck: limited range of motion, tracheotomy Respiratory: crackles, wheezing Cardiovascular #1: normal peripheral pulses, regular rate, rhythm Gastrointestinal: normal inspection, non tender Musculoskeletal: normal inspection Neurologic: normal inspection, alert, oriented x3, responsive, 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 Differential included but was not limited to anemia, pneumonia, pneumothorax, myocardial infarction, pericardial effusion, congestive heart failure, acidosis. Because of complexity of patient' s case laboratory testing and imaging studies were ordered. The patient was noted to have had dislodged tracheostomy. The patient was having acute difficulty breathing. Patient was initially noted to have some difficulty with respirations and an uncuffed 5-0 ET tube was placed in the stoma to provide suctioning and maintain patency. The patient was noted to have a 6- 0 Shiley trach. I attempted to replace this with a 6-0 Shiley trach however could not fit that size tracheostomy through the stoma. The patient subsequently had a 4-0 Shiley tracheostomy placed with moderate difficulty. The patient was noted to have a large amount of secretions. The patient was noted to have chest x-ray one view interpreted by me with normal cardiac size without definite infiltrate and no evidence of pleural effusion. Patient was noted to be somewhat anemic. Patient was discussed with [facility] for possible transfer. They will need recontact when all labs available. Labs Test 07/05/17 14:40 White Blood Count 8.7 K/UL (4.8-10.8) Red Blood Count 3.13 M/UL (4.70-6.10) Hemoglobin 9.0 G/DL (14.2-18.0) Hematocrit 29.1 % (42.0-52.0) Mean Corpuscular Volume 93 FL (80-99) Mean Corpuscular Hemoglobin 28.6 PG (27.0-31.0) Mean Corpuscular Hemoglobin Concent 30.8 G/DL (32.0-36.0) Red Cell Distribution Width 14.7 % (11.6-14.8) Platelet Count 145 K/UL (150-450) Mean Platelet Volume 6.7 FL (6.5-10.1) Neutrophils (%) (Auto) % (45.0-75.0) Lymphocytes (%) (Auto) % (20.0-45.0) Monocytes (%) (Auto) % (1.0-10.0) Eosinophils (%) (Auto) % (0.0-3.0) Basophils (%) (Auto) % (0.0-2.0) EKG Diagnostic Results Rate: tachycardiac - 118 Rhythm: NSR ST Segments: no acute changes Rhythm Strip Diag. Results EP Interpretation: yes Rhythm: NSR, no PVC's, no ectopy Last Vital Signs Date Time Temp Pulse Resp B/P (MAP) Pulse Ox O2 Delivery O2 Flow Rate FiO2 07/05/17 12:58 97.9 110 18 160/80 98 Simple Mask Status: improved Disposition: XFER SHT-TRM HOSP Condition: Serious Referrals: NOT CHOSEN JOEL/,REFERRING (PCP) Kevin Franco Jul 05, 2017 14:58
[2017-07-05 15:04] LABS: INR 1.1 (0.9-1.1)
[2017-07-05 15:10] LABS: ANION GAP 10 mmol/L (5-15); BLOOD UREA NITROGEN 12 mg/dL (7-18); CALCIUM 10.1 MG/DL (8.5-10.1); CARBON DIOXIDE 26 MMOL/L (21-32); CHLORIDE 100 MMOL/L (98-107); CREATININE 1.3 MG/DL (0.55-1.30); POTASSIUM 4.3 MMOL/L (3.5-5.1); SODIUM 136 MMOL/L (136-145)
[2017-07-05 15:27] LABS: ALANINE AMINOTRANSFERASE 8 U/L (12-78); ALBUMIN 2.8 G/DL (3.4-5.0); ALBUMIN/GLOBULIN RATIO 0.6 (1.0-2.7); ALKALINE PHOSPHATASE 102 U/L (46-116); ASPARTATE AMINO TRANSFERASE 11 U/L (15-37); BILIRUBIN,TOTAL 0.3 MG/DL (0.2-1.0); CKMB < 0.5 NG/ML (0.0-3.6); CREATINE KINASE 16 U/L (26-308); PHOSPHORUS 3.7 MG/DL (2.5-4.9)
[2017-07-05] MEDS ORDERED: Morphine Sulfate 4mg/ml Inj IVP ONE ×2 (15:45→19:30)
[2017-07-05] MEDS ORDERED: DiphenhydrAMINE 50mg/ml Inj IVP ONE ×2 (17:30→21:15)
[2017-07-05 17:38] LABS: APPEARANCE,URINE CLEAR; BILIRUBIN, URINE NEGATIVE (NEGATIVE); COLOR,URINE PALE YELLOW; GLUCOSE, URINE (UA) NEGATIVE (NEGATIVE); KETONES,URINE NEGATIVE (NEGATIVE); LEUKOCYTE ESTERASE ,URINE NEGATIVE (NEGATIVE); NITRITE,URINE NEGATIVE (NEGATIVE); PH,URINE 5 (4.5-8.0); PROTEIN,URINE 2+ (NEGATIVE); UROBILINOGEN,URINE NORMAL MG/DL (0.0-1.0)
[2017-07-05] MEDS ORDERED: TYLENOL EXTRA500 MG ORAL (18:11)
[2017-07-05 18:58] VITALS: BP 123/56
[2017-07-05 20:26] VITALS: BP 107/62
[2017-07-05 22:23] VITALS: BP 99/61
[2017-07-05 22:34] VITALS: BP 99/61
--- NOTE | 2017-07-08 15:31 | Cardiology Report ---
APPROVED REPORT EKG Measurement Heart [id number] Sinus tachycardia Nonspecific T wave abnormality Abnormal ECG
== END 2017-07-05 22:34 | disposition short-term general hospital (02) ==
LOC: EDBD 12:52 → EDBEDREQ 13:26 → EMR 13:35
DX: J20.9 Acute bronchitis, unspecified (principal); C14.0 Malignant neoplasm of pharynx, unspecified; D64.9 Anemia, unspecified; J44.9 Chronic obstructive pulmonary disease, unspecified; Z93.0 Tracheostomy status
CPT/HCPCS: 36415; 71045; 80053; 81003; 82550; 82553; 83605; 83735; 84100; 84484; 85007; 85025; 85610; 85730; 86710; 87040; 93005; 94640; 94664; 96374; 96375; 96376; 99285; J1200; J2270; J2405; J7620